=== PATIENT | female | born 1985 | race Caucasian/White ===

== ENCOUNTER → 2018-01-19 | Outpatient (CLI) | payer OTHER ==
--- NOTE | 2018-01-19 11:12 | RAD ---
Barium esophagram History: Gastroesophageal reflux disease Comparison: None. Findings: Single view of the chest was performed, no infiltrate or pleural fluid. There is mild superior thoracic levoscoliosis. Barium esophagram was performed. 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 There is very small sliding hiatal hernia. Overall esophageal motility is within normal limits. Fluoroscopy time: 0.6 minutes, 92 images Impression: 1. 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 Electronically signed by: Kyle Gao MD (01/19/2018 11:09 AM) [id number]
== END | disposition home or self-care (01) ==
LOC: RAD 09:56
PROVIDERS: ATTEND Internal Medicine Gastroenterology
DX: K21.9 Gastro-esophageal reflux disease without esophagitis (principal); K44.9 Diaphragmatic hernia without obstruction or gangrene
CPT/HCPCS: 74220

== ENCOUNTER 2018-04-14 19:10 | Emergency (ER) | payer OTHER ==
[~2018-04-14] VITALS: Ht 172.7 cm; Wt 89.8 kg
--- NOTE | 2018-04-14 19:22 | ED.ADGEN ---
Past History Past Medical History: Anxiety, GERD, IBS, UTI Past Medical History Dysphagia Past Surgical History: Cholecystectomy Adult General Chief Complaint Chief Complaint ".. I am not feeling well in my abdomen..I have dysphagia ... I have follow-up at in May.... And had several urinary tract infections... I was at [facility] today and he found no urinary tract infection but I still feel discomfort when I urinate... And some lower abdomen discomfort... I can't sleep with this discomfort..." HPI HPI Patient is a 33 year old female who presents with above hx and complaints of abdomen pain. Pt. pain has been somewhat constant since Friday. Patient rates her pain currently as 7 out of 10, seems to be lower in abdomen and midline.. Patient states pain is different than prior abdomen pain s as episodes with IBS , reflux and gallbladder problems. Patient does have occasional urinary tract infections. Patient denies any intake of bad food. Patient denies any trauma. Patient denies any recent travel. Patient denies any vaginal discharge. His only had 1 lifetime sex partner. No history of STDs. No history of travel. No specific ill contacts. No contact with ill animals, poultry or reptiles. has been back home from [employer] deployment since July. Her children and been have not been ill. No family history of colitis. Patient has had previous gallbladder surgery. Patient denies any tarry or dark stools. Patient has had previous EGDs. For evaluation of her dysphagia complaints. Pt. did see her primary care at [facility] today. UA there was reportedly normal. Patient has no vaginal discharge or concerns of STD. No history immunosuppression. Has had some evaluation patient for early Parkinson dz due to her dysphagia. Review of Systems Review of Systems Constitutional: Denies fever or chills [] Eyes: Denies change in visual acuity, redness, or eye pain [] HENT: Denies nasal congestion or sore throat [] Respiratory: Denies cough or shortness of breath [] Cardiovascular: No additional information not addressed in HPI [] GI: Complaints of lower abdominal pain, nausea, . Denies vomiting, bloody stools or diarrhea [] : Complaints of dysuria Musculoskeletal: Denies back pain or joint pain [] Integument: Denies rash or skin lesions [] Neurologic: Denies headache, focal weakness or sensory changes [] Endocrine: Denies polyuria or polydipsia [] All other systems were reviewed and found to be within normal limits, except as documented in this note. Family History Family History Noncontributory Current Medications Current Medications Current Medications Medications (Trade) Dose Ordered Sig/Evie Start Time Stop Time Status Last Admin Dose Admin Albuterol/ Ipratropium (Duoneb) 3 ml 1X ONCE 04/14/18 23:00 04/14/18 23:01 DC 04/14/18 23:24 3 ML Ceftriaxone Sodium 1 gm/ Sodium Chloride 50 ml @ 100 mls/hr 1X ONCE 04/14/18 21:30 04/14/18 21:59 DC 04/14/18 22:07 100 MLS/HR Ceftriaxone Sodium (Rocephin) 1 gm STK-MED ONCE 04/14/18 21:38 04/14/18 21:39 DC Diphenhydramine HCl (Benadryl) 50 mg 1X ONCE 04/14/18 22:17 04/14/18 23:07 DC 04/14/18 22:17 50 MG Famotidine (Pepcid Vial) 20 mg 1X ONCE 04/14/18 20:00 04/14/18 20:09 DC 04/14/18 20:18 20 MG Iohexol (Omnipaque 240 Mg/ml) 50 ml 1X ONCE 04/14/18 20:30 04/14/18 20:31 DC 04/14/18 21:37 50 ML Iohexol (Omnipaque 300 Mg/ml) 75 ml 1X ONCE 04/14/18 20:30 04/14/18 20:31 DC 04/14/18 21:36 75 ML Ketorolac Tromethamine (Toradol 30mg Vial) 30 mg 1X ONCE 04/14/18 20:00 04/14/18 20:09 DC 04/14/18 20:18 30 MG Lactated Ringer's 1,000 ml @ 1,000 mls/hr Q1H 04/14/18 20:00 04/14/18 20:59 DC 04/14/18 20:18 1,000 MLS/HR Methylprednisolone Sodium Succinate (SOLU-Medrol 125MG VIAL) 125 mg 1X ONCE 04/14/18 23:00 04/14/18 23:01 DC 04/14/18 23:00 125 MG Ondansetron HCl (Zofran Odt) 8 mg 1X ONCE 04/14/18 20:00 04/14/18 20:01 DC 04/14/18 19:55 8 MG Sodium Chloride 50 ml @ As Directed STK-MED ONCE 04/14/18 21:37 04/14/18 21:38 DC Trimethoprim/ Sulfamethoxazole (Bactrim Oral Susp) 10 ml 1X STAT 04/14/18 23:36 04/15/18 00:17 DC 04/14/18 23:36 10 ML Trimethoprim/ Sulfamethoxazole (Starter Pack - Bactrim Oral Susp) 1 startpack 1X STAT 04/15/18 00:17 04/15/18 00:19 DC Allergies Allergies Allergies Coded Allergies Type Severity Reaction Last Updated Verified ceftriaxone Allergy Severe 04/14/18 Yes nitrofurantoin Allergy Unknown 04/14/18 Yes Physical Exam Physical Exam Constitutional: Well developed, well nourished, [id number] distress, non- toxic appearance. [] HENT: Normocephalic, atraumatic, bilateral external ears normal, oropharynx moist, no oral exudates, nose normal. [] Eyes: PERRLA, EOMI, conjunctiva normal, no discharge. Blue. Neck: Normal range of motion, no tenderness, supple, no stridor. [] Cardiovascular:Heart rate regular rhythm, no murmur [] Lungs & Thorax: Bilateral breath sounds equal at apexes on auscultation [] Abdomen: Bowel sounds normal, soft, mild lower abd. tenderness, no masses, no pulsatile masses. No flank tenderness. No true rebound. Old surgery scars. Skin: Warm, dry, no erythema, no rash. [] Back: No tenderness, no CVA tenderness. [] Extremities: No tenderness, no cyanosis, no clubbing, ROM intact, no edema. No psoas sign. Neurologic: Alert and oriented X 3, normal motor function, normal sensory function, no focal deficits noted. [] Psychologic: Affect anxious, judgement normal, mood normal. [] Current Patient Data Vital Signs Vital Signs Date Time Temp Pulse Resp B/P (MAP) Pulse Ox O2 Delivery O2 Flow Rate FiO2 04/15/18 00:30 88 20 108/73 (85) 97 Room Air 04/14/18 19:15 98.6 Lab Results Laboratory Tests Test 2/12/19 19:18 04/14/18 19:43 04/14/18 20:05 Urine Collection Type Unknown Urine Color [place] Urine Clarity Clear Urine pH 5.0 Urine Specific [place] <=1.005 Urine Protein Neg (NEG-TRACE) Urine Glucose (UA) 100 mg/dL (NEG) Urine Ketones (Stick) Neg mg/dL (NEG) Urine Blood Neg (NEG) Urine Nitrite Pos (NEG) Urine Bilirubin Neg (NEG) Urine Urobilinogen Dipstick 1 mg/dL (0.2 mg/dL) Urine Leukocyte Esterase Neg (NEG) Urine RBC 0 /HPF (0-2) Urine WBC Occ /HPF (0-4) Urine Squamous Epithelial Cells Occ /LPF Urine Bacteria Few /HPF (0-FEW) Urine Opiates Screen Neg (NEG) Urine Methadone Screen Neg (NEG) Urine Barbiturates Neg (NEG) Urine Phencyclidine Screen Neg (NEG) Urine Amphetamine/Methamphetamine Neg (NEG) Urine Benzodiazepines Screen Neg (NEG) Urine Cocaine Screen Neg (NEG) Urine Cannabinoids Screen Neg (NEG) Urine Ethyl Alcohol Neg (NEG) POC Urine HCG, Qualitative hcg negative (Negative) White Blood Count 8.1 x10^3/uL (4.0-11.0) Red Blood Count 4.74 x10^6/uL (3.50-5.40) Hemoglobin 13.4 g/dL (12.0-15.5) Hematocrit 40.0 % (36.0-47.0) Mean Corpuscular Volume 84 fL (79-100) Mean Corpuscular Hemoglobin 28 pg (25-35) Mean Corpuscular Hemoglobin Concent 33 g/dL (31-37) Red Cell Distribution Width 14.7 % (11.5-14.5) H Platelet Count 295 x10^3/uL (140-400) Neutrophils (%) (Auto) 40 % (31-73) Lymphocytes (%) (Auto) 48 % (24-48) Monocytes (%) (Auto) 9 % (0-9) Eosinophils (%) (Auto) 2 % (0-3) Basophils (%) (Auto) 1 % (0-3) Neutrophils # (Auto) 3.2 x10^3uL (1.8-7.7) Lymphocytes # (Auto) 3.8 x10^3/uL (1.0-4.8) Monocytes # (Auto) 0.8 x10^3/uL (0.0-1.1) Eosinophils # (Auto) 0.2 x10^3/uL (0.0-0.7) Basophils # (Auto) 0.1 x10^3/uL (0.0-0.2) Prothrombin Time 9.6 SEC (9.4-11.4) Prothrombin Time INR 1.0 (0.9-1.1) PTT 25 SEC (23-33) Sodium Level 139 mmol/L (136-145) Potassium Level 4.1 mmol/L (3.5-5.1) Chloride Level 102 mmol/L (98-107) Carbon Dioxide Level 27 mmol/L (21-32) Anion Gap 10 (6-14) Blood Urea Nitrogen 8 mg/dL (7-20) Creatinine 0.7 mg/dL (0.6-1.0) Estimated GFR (Cockcroft-Gault) 95.2 Glucose Level 92 mg/dL (70-99) Calcium Level 9.0 mg/dL (8.5-10.1) Total Bilirubin 0.1 mg/dL (0.2-1.0) L Direct Bilirubin < 0.1 mg/dL (0.0-0.2) Aspartate Amino Transferase (AST) 18 U/L (15-37) Alanine Aminotransferase (ALT) 21 U/L (14-59) Alkaline Phosphatase 109 U/L (46-116) Total Protein 7.8 g/dL (6.4-8.2) Albumin 3.9 g/dL (3.4-5.0) Amylase Level 88 U/L (25-115) Lipase 414 U/L (73-393) H EKG EKG [] Radiology/Procedures Radiology/Procedures My interpretation of acute abdomen film shows no acute cardiopulmonary findings. Does have some basilar atelectasis. No free air under the diaphragm. Does have right upper abdomen surgical clips. Does appear to have stool throughout the colon. Nonspecific bowel gas pattern.[] CT of abdomen showed no hydronephrosis, no findings acute appendicitis, no acute surgical processes. Did have by the Center atelectasis in the lungs. See formal report when available. Course & Med Decision Making Course & Med Decision Making Pertinent Labs and Imaging studies reviewed. (See chart for details) Patient seen to have reaction to Rocephin- "needles in my skin all over". No rash, No wheezes. . This was stopped and patient was given Benadryl and Solu- Medrol. Patient started on liquid Bactrim to be taken twice day. Patient to keep follow-up with primary care. Patient review labs here and urine cultures with primary care. Patient keep follow-up at [facility]. Patient encouraged to take deep breaths. Patient must keep follow-ups. Return if any concerns. Instructed to add Rocephin to allergy list. [] Final Impression Final Impression 1. Abdomen pain 2. + Nitrites Urine-UTI 3. Elevated Lipase 414[] 4. History of dysphagia with any solids- maintains on a liquid diet Dragon Disclaimer Dragon Disclaimer This electronic medical record was generated, in whole or in part, using a voice recognition dictation system. Dragon Disclaimer This chart was dictated in whole or in part using Voice Recognition software in a busy, high-work load, and often noisy Emergency Department environment. It may contain unintended and wholly unrecognized errors or omissions. Discharge Summary Visit Information Final Diagnosis Problems Medical Problems: (1) Pain in the abdomen Status: Acute (2) Urinary tract bacterial infections Status: Acute Brief Hospital Course Allergies Allergies Coded Allergies Type Severity Reaction Last Updated Verified ceftriaxone Allergy Severe 04/14/18 Yes nitrofurantoin Allergy Unknown 04/14/18 Yes Vital Signs Vital Signs Date Time Temp Pulse Resp B/P (MAP) Pulse Ox O2 Delivery O2 Flow Rate FiO2 04/15/18 00:30 88 20 108/73 (85) 97 Room Air 04/14/18 19:15 98.6 Lab Results Laboratory Tests Test 04/14/18 19:18 04/14/18 19:43 04/14/18 20:05 Urine Collection Type Unknown Urine Color [place] Urine Clarity Clear Urine pH 5.0 Urine Specific [place] <=1.005 Urine Protein Neg (NEG-TRACE) Urine Glucose (UA) 100 mg/dL (NEG) Urine Ketones (Stick) Neg mg/dL (NEG) Urine Blood Neg (NEG) Urine Nitrite Pos (NEG) Urine Bilirubin Neg (NEG) Urine Urobilinogen Dipstick 1 mg/dL (0.2 mg/dL) Urine Leukocyte Esterase Neg (NEG) Urine RBC 0 /HPF (0-2) Urine WBC Occ /HPF (0-4) Urine Squamous Epithelial Cells Occ /LPF Urine Bacteria Few /HPF (0-FEW) Urine Opiates Screen Neg (NEG) Urine Methadone Screen Neg (NEG) Urine Barbiturates Neg (NEG) Urine Phencyclidine Screen Neg (NEG) Urine Amphetamine/Methamphetamine Neg (NEG) Urine Benzodiazepines Screen Neg (NEG) Urine Cocaine Screen Neg (NEG) Urine Cannabinoids Screen Neg (NEG) Urine Ethyl Alcohol Neg (NEG) Bedside Urine HCG, Qualitative hcg negative (Negative) White Blood Count 8.1 x10^3/uL (4.0-11.0) Red Blood Count 4.74 x10^6/uL (3.50-5.40) Hemoglobin 13.4 g/dL (12.0-15.5) Hematocrit 40.0 % (36.0-47.0) Mean Corpuscular Volume 84 fL (79-100) Mean Corpuscular Hemoglobin 28 pg (25-35) Mean Corpuscular Hemoglobin Concent 33 g/dL (31-37) Red Cell Distribution Width 14.7 % (11.5-14.5) Platelet Count 295 x10^3/uL (140-400) Neutrophils (%) (Auto) 40 % (31-73) Lymphocytes (%) (Auto) 48 % (24-48) Monocytes (%) (Auto) 9 % (0-9) Eosinophils (%) (Auto) 2 % (0-3) Basophils (%) (Auto) 1 % (0-3) Neutrophils # (Auto) 3.2 x10^3uL (1.8-7.7) Lymphocytes # (Auto) 3.8 x10^3/uL (1.0-4.8) Monocytes # (Auto) 0.8 x10^3/uL (0.0-1.1) Eosinophils # (Auto) 0.2 x10^3/uL (0.0-0.7) Basophils # (Auto) 0.1 x10^3/uL (0.0-0.2) Prothrombin Time 9.6 SEC (9.4-11.4) Prothromb Time International Ratio 1.0 (0.9-1.1) Activated Partial Thromboplast Time 25 SEC (23-33) Sodium Level 139 mmol/L (136-145) Potassium Level 4.1 mmol/L (3.5-5.1) Chloride Level 102 mmol/L (98-107) Carbon Dioxide Level 27 mmol/L (21-32) Anion Gap 10 (6-14) Blood Urea Nitrogen 8 mg/dL (7-20) Creatinine 0.7 mg/dL (0.6-1.0) Estimated GFR (Cockcroft-Gault) 95.2 Glucose Level 92 mg/dL (70-99) Calcium Level 9.0 mg/dL (8.5-10.1) Total Bilirubin 0.1 mg/dL (0.2-1.0) Direct Bilirubin < 0.1 mg/dL (0.0-0.2) Aspartate Amino Transf (AST/SGOT) 18 U/L (15-37) Alanine Aminotransferase (ALT/SGPT) 21 U/L (14-59) Alkaline Phosphatase 109 U/L (46-116) Total Protein 7.8 g/dL (6.4-8.2) Albumin 3.9 g/dL (3.4-5.0) Amylase Level 88 U/L (25-115) Lipase 414 U/L (73-393) Brief Hospital Course Ms. Oswald is a 33 old female who presented with abdomen pain and dysuria. Mild UTI. Hx. Dysphagia for any solids. Discharge Information Condition at Discharge: Improved, Stable Disposition/Orders: D/C to Home Dischare Medications Current Medications Ondansetron HCl (Zofran Odt) 8 mg 1X ONCE PO Last administered on 04/14/18at 19 :55; Admin Dose 8 MG; Start 04/14/18 at 20:00; Stop 04/14/18 at 20:01; Status DC Lactated Ringer's 1,000 ml @ 1,000 mls/hr Q1H IV Last administered on at 20:18; Admin Dose 1,000 MLS/HR; Start 04/14/18 at 20:00; Stop 04/14/18 at 20:59; Status DC Famotidine (Pepcid Vial) 20 mg 1X ONCE IVP Last administered on 04/14/18at 20: 18; Admin Dose 20 MG; Start 04/14/18 at 20:00; Stop 04/14/18 at 20:09; Status DC Ketorolac Tromethamine (Toradol 30mg Vial) 30 mg 1X ONCE IV Last administered on 04/14/18at 20:18; Admin Dose 30 MG; Start 04/14/18 at 20:00; Stop 04/14/18 at 20:09; Status DC Iohexol (Omnipaque 240 Mg/ml) 50 ml 1X ONCE PO Last administered on 04/14/18at 21:37; Admin Dose 50 ML; Start 04/14/18 at 20:30; Stop 04/14/18 at 20:31; Status DC Iohexol (Omnipaque 300 Mg/ml) 75 ml 1X ONCE IV Last administered on 04/14/18at 21:36; Admin Dose 75 ML; Start 04/14/18 at 20:30; Stop 04/14/18 at 20:31; Status DC Ceftriaxone Sodium 1 gm/ Sodium Chloride 50 ml @ 100 mls/hr 1X ONCE IV Last administered on 04/14/18at 22:07; Admin Dose 100 MLS/HR; Start 04/14/18 at 21:30 ; Stop 04/14/18 at 21:59; Status DC Sodium Chloride 50 ml @ As Directed STK-MED ONCE .ROUTE ; Start 04/14/18 at 21: 37; Stop 04/14/18 at 21:38; Status DC Ceftriaxone Sodium (Rocephin) 1 gm STK-MED ONCE .ROUTE ; Start 04/14/18 at 21:38 ; Stop 04/14/18 at 21:39; Status DC Diphenhydramine HCl (Benadryl) 50 mg STK-MED ONCE .ROUTE ; Start 04/14/18 at 22: 16; Stop 04/14/18 at 22:17; Status DC Methylprednisolone Sodium Succinate (SOLU-Medrol 125MG VIAL) 125 mg STK-MED ONCE .ROUTE ; Start 04/14/18 at 22:58; Stop 04/14/18 at 22:59; Status DC Methylprednisolone Sodium Succinate (SOLU-Medrol 125MG VIAL) 125 mg 1X ONCE IV Last administered on 04/14/18at 23:00; Admin Dose 125 MG; Start 04/14/18 at 23: 00; Stop 04/14/18 at 23:01; Status DC Albuterol/ Ipratropium (Duoneb) 3 ml 1X ONCE NEB Last administered on at 23:24; Admin Dose 3 ML; Start 04/14/18 at 23:00; Stop 2/12/19 at 23:01; Status DC Diphenhydramine HCl (Benadryl) 50 mg 1X ONCE IVP Last administered on at 22:17; Admin Dose 50 MG; Start 04/14/18 at 22:17; Stop 04/14/18 at 23:07; Status DC Trimethoprim/ Sulfamethoxazole (Bactrim Oral Susp) 10 ml 1X STAT PO Last administered on 04/14/18at 23:36; Admin Dose 10 ML; Start 04/14/18 at 23:36; Stop 04/15/18 at 00:17; Status DC Trimethoprim/ Sulfamethoxazole (Starter Pack - Bactrim Oral Susp) 1 startpack STK-MED ONCE PO ; Start 04/15/18 at 00:04; Stop 04/15/18 at 00:05; Status DC Trimethoprim/ Sulfamethoxazole (Starter Pack - Bactrim Oral Susp) 1 startpack 1X STAT PO ; Start 04/15/18 at 00:17; Stop 04/15/18 at 00:19; Status DC Active Scripts Active Bactrim Ds Tablet (Sulfamethoxazole/Trimethoprim) 1 Each Tablet 1 Tab PO BID BROOK TRAN MD Apr 14, 2018 19:22
[2018-04-14] MEDS ORDERED: KETOROLAC 30 MG/ML VIAL. IV ONE (20:00)
[2018-04-14] MEDS ORDERED: FAMOTIDINE 20 MG/2 ML VIAL IVP ONE (20:00)
[2018-04-14] MEDS ORDERED: ONDANSETRON ODT 4 MG TAB.RAPDIS PO ONE (20:00)
[2018-04-14] MEDS ORDERED: IV RINGERS SOLUTION,LACTATED 1,000 ML IV SCH (20:00)
[2018-04-14 20:02] LABS: BILIRUBIN,URINE NEG (NEG); CLARITY,URINE CLEAR; COLOR,URINE ORANGE; GLUCOSE,URINE 100 mg/dL (NEG)
[2018-04-14 20:03] LABS: BACTERIA,URINE FEW /HPF (0-FEW); NITRITE,URINE POS (NEG); RBC,URINE 0 /HPF (0-2); SQUAMOUS EPITHELIAL CELL,UR OCC /LPF; UROBILINOGEN,URINE 1 mg/dL (0.2 mg/dL); WBC,URINE OCC /HPF (0-4)
[2018-04-14 20:04] LABS: BARBITURATES NEG (NEG); BENZODIAZEPINES NEG (NEG); CANNABINOIDS NEG (NEG); COCAINE NEG (NEG); METHADONE NEG (NEG); OPIATES NEG (NEG); PHENCYCLIDINE NEG (NEG)
[2018-04-14 20:05] LABS: AMPHETAMINE/METHAMPHETAMINE NEG (NEG)
[2018-04-14 20:30] LABS: BASO # 0.1 x10^3/uL (0.0-0.2); BASO % 1 % (0-3); EOS # 0.2 x10^3/uL (0.0-0.7); EOS % 2 % (0-3); HEMOGLOBIN 13.4 g/dL (12.0-15.5); LYMPH # 3.8 x10^3/uL (1.0-4.8); LYMPH % 48 % (24-48); MEAN CORPUSCULAR HEMOGLOBIN 28 pg (25-35); MEAN CORPUSCULAR HGB CONC 33 g/dL (31-37); MEAN CORPUSCULAR VOLUME 84 fL (79-100); MONO # 0.8 x10^3/uL (0.0-1.1); MONO % 9 % (0-9); NEUT # 3.2 x10^3uL (1.8-7.7); NEUT % 40 % (31-73); PLATELET COUNT 295 x10^3/uL (140-400); RED BLOOD COUNT 4.74 x10^6/uL (3.50-5.40); RED CELL DISTRIBUTION WIDTH 14.7 % (11.5-14.5); WHITE BLOOD COUNT 8.1 x10^3/uL (4.0-11.0)
[2018-04-14] MEDS ORDERED: IOHEXOL 240 MG/ML 50ML VIAL. PO ONE (20:30)
[2018-04-14] MEDS ORDERED: IOHEXOL 300 MG/ML 75 ML VIAL. IV ONE (20:30)
[2018-04-14 20:45] LABS: ALBUMIN 3.9 g/dL (3.4-5.0); ALK PHOS 109 U/L (46-116); ALT (SGPT) 21 U/L (14-59); AMYLASE 88 U/L (25-115); ANION GAP 10 (6-14); AST (SGOT) 18 U/L (15-37); BLOOD UREA NITROGEN 8 mg/dL (7-20); CARBON DIOXIDE 27 mmol/L (21-32); CHLORIDE 102 mmol/L (98-107); CREATININE 0.7 mg/dL (0.6-1.0); GFR 95.2; GLUCOSE 92 mg/dL (70-99); LIPASE 414 U/L (73-393); POTASSIUM 4.1 mmol/L (3.5-5.1); SODIUM 139 mmol/L (136-145); TOTAL BILIRUBIN 0.1 mg/dL (0.2-1.0); TOTAL PROTEIN 7.8 g/dL (6.4-8.2)
[2018-04-14 20:48] LABS: DIRECT BILIRUBIN < 0.1 mg/dL (0.0-0.2)
[2018-04-14] MEDS ORDERED: IV NORMAL SALINE 50ML 50 ML ONE (21:37)
[2018-04-14] MEDS ORDERED: cefTRIAXone SODIUM 1 GM VIAL ONE (21:38)
[2018-04-14] MEDS ORDERED: diphenhydrAMINE 50 MG/ML VIAL ONE (22:16)
[2018-04-14] MEDS ORDERED: diphenhydrAMINE 50 MG/ML VIAL IVP ONE (22:17)
--- NOTE | 2018-04-14 22:47 | RAD ---
CT scan abdomen and pelvis with contrast 04/14/2018 CLINICAL HISTORY: Abdominal pain and low pelvic pain. TECHNIQUE: After the oral and intravenous administration of contrast, contiguous, 5 mm axial sections were obtained through abdomen and pelvis. 75 cc of Omnipaque 300 were administered intravenously during this examination. One or more of the following individualized dose reduction techniques were utilized for this study: 1. Automated exposure control. 2. Adjustment of the mA and/or kV according to patient size. 3. Use of iterative reconstruction technique. FINDINGS: Comparison is made to an acute abdominal series performed earlier today. Images through the lung bases demonstrate minimal dependent subsegmental atelectasis bilaterally. The liver, spleen, pancreas, adrenal glands and kidneys are within normal limits. The abdominal aorta tapers normally. Surgical clips are seen within the gallbladder fossa consistent with a cholecystectomy. No free fluid or free air is seen within the abdomen. There is no evidence of bowel obstruction. Air and stool is seen throughout the colon. The appendix is not visualized. No inflammatory changes are seen surrounding the cecum. Images through the pelvis demonstrate the urinary bladder distended with urine. Punctate calcification are seen within the pelvis consistent with phleboliths. No free fluid is seen. No adnexal mass is noted. Minimal S-shaped curvature of the thoracolumbar spine is seen. IMPRESSION: No acute abnormality is seen. Electronically signed by: Kristopher Zavala MD (04/14/2018 10:43 PM) [facility]
[2018-04-14] MEDS ORDERED: methylPREDNISolone SOD SUCC PF 125 MG/2 ML VIAL. ONE (22:58)
[2018-04-14] MEDS ORDERED: methylPREDNISolone SOD SUCC PF 125 MG/2 ML VIAL. IV ONE (23:00)
[2018-04-14] MEDS ORDERED: IPRATRPIUM/ALBUTEROL 0.5/2.5MG 3 ML NEBU. NEB ONE (23:00)
[2018-04-14] MEDS ORDERED: SMZ/TMP 200MG/40MG 5 ML ORAL.SUSP. PO STA (23:36)
[2018-04-14] MEDS ORDERED: SULF1TAB24 PO (23:41)
--- NOTE | 2018-04-15 00:01 | RAD ---
Acute abdominal series to include a PA chest radiograph 04/14/2018 Clinical History: Low pelvic pain. A PA digital radiograph of the chest was obtained. Supine and erect AP digital radiographs of the abdomen/pelvis were obtained. No previous studies are available for comparison. The cardiac and mediastinal silhouettes are within normal limits in size and configuration. No pulmonary infiltrate is seen. No pleural effusion or pneumothorax is noted. Surgical clips are seen within the right upper quadrant abdomen consistent with a cholecystectomy. The abdominal bowel gas pattern is nonobstructive. A moderate amount of stool is seen throughout the colon. There is no evidence of free air. No radiopaque calculus is seen. The osseous structures are grossly intact. Impression: Nonobstructive bowel gas pattern. Electronically signed by: Kristopher Zavala MD (04/14/2018 11:58 PM) [facility]
[2018-04-15] MEDS ORDERED: SMX/TMP ORAL SUSP 20ML STARTPACK. PO ONE (00:04)
[2018-04-15] MEDS ORDERED: SMX/TMP ORAL SUSP 20ML STARTPACK. PO STA (00:17)
[2018-04-15 00:30] VITALS: BP 108/73
== END 2018-04-15 00:30 | disposition home or self-care (01) ==
LOC: ER 19:10
DX: N39.0 Urinary tract infection, site not specified (principal); B96.89 Other specified bacterial agents as the cause of diseases classified elsewhere; R74.8 Abnormal levels of other serum enzymes; F41.9 Anxiety disorder, unspecified; K21.9 Gastro-esophageal reflux disease without esophagitis; K58.9 Irritable bowel syndrome, unspecified; Z87.440 Personal history of urinary (tract) infections; Z90.49 Acquired absence of other specified parts of digestive tract; Z88.8 Allergy status to other drugs, medicaments and biological substances; Z88.1 Allergy status to other antibiotic agents
CPT/HCPCS: 36415; 74022; 74177; 80048; 80076; 80307; 81001; 81025; 82150; 83690; 85025; 85610; 85730; 87086; 94640; 96374; 96375; 99284; J0696; J1200; J1885; J2930; J3490; J7120; J7620; Q0162; Q9966; Q9967